=== PATIENT | female | born 1955 | race Caucasian/White ===

== ENCOUNTER 2017-01-08 17:21 | Inpatient (IN) | payer OTHER ==
[~2017-01-08] VITALS: Ht 165.1 cm; Wt 72.0 kg
[2017-01-08] MEDS ORDERED: SOD CHLORIDE 0.9% 1,000 ML IV STA (17:39)
[2017-01-08] MEDS ORDERED: ASPIRIN 325 MG TAB PO STA (17:39)
--- NOTE | 2017-01-08 17:57 | RADRPT ---
PROCEDURE: CT Head without. CLINICAL INDICATION: Code stroke. TECHNIQUE: The study was performed utilizing a multi-slice, multidetector CT scanner. Direct spira l 1 mm axial sections were obtained through the head without the use of intravenous contrast materia l. 1 or more of the following dose reduction techniques were utilized: Automated exposure control, adjustment of the mA and/or kV according to patient's size, iterative reconstruction technique. Co ashish and sagittal reformations were obtained. The images were reviewed on a PACS workstation. RADIATION DOSE: CTDIvol: 40.2 mGyDLP: 754.6 mGy-cm COMPARISON: No prior studies are available for comparison. FINDINGS: There is no intracranial hemorrhage, extra-axial fluid collection, mass lesion, midline shift or hyd rocephalus. The ventricles, sulci and cisterns are within normal limits. There are mild asymmetric white matter changes in the bilateral periatrial regions of the parietal and occipital lobes, which is nonspecific. The taylor-white matter differentiation is preserved. The basal cisterns are patent . The midline structures are intact. The orbits, calvarium and extracranial soft tissues are lopez l in appearance. The visualized paranasal sinuses, mastoid air cells and middle ear cavities are nor hawk aerated. IMPRESSION: 1. No acute intracranial abnormality. No intracranial hemorrhage, extra-axial fluid collection, ma ss lesion or hydrocephalous. 2. Asymmetric prominence of the white matter in the bilateral posterior white matter, which is nons pecific. If clinical history of hypertension, posterior reversible encephalopathy syndrome can be c onsidered. 3. No CT evidence of infarct at this time. If clinical concern for infarct, MRI is recommended for further evaluation. The above findings were discussed with Patient's physician VERNON Urena by telephone on 2016 5:55:47 PM. RPTAT: HGAS .Jaleel Merino MD, Date Time Electronically viewed and signed by .Jaleel Merino MD, MD on 01/08/2017 17:57 .S/
[2017-01-08] MEDS ORDERED: CHOL100062 PO (18:02)
[2017-01-08] MEDS ORDERED: GLUC-105 PO (18:05)
--- NOTE | 2017-01-08 18:06 | ERA ---
ER Documentation Chief Complaint Date/Time DATE: 01/08/17 TIME: 18:03 Chief Complaint weakness, left sided upper/ lower ext weakness, facial droop since 0900 HPI This is a 61-year-old female with an onset at 9 AM this morning of sudden left facial drooping left arm weakness and left leg weakness. There is no numbness. No speech or visual change. She has no prior history of stroke. She has no headache no fever no recent trauma chest pain shortness of breath. ROS All systems reviewed and are negative except as per history of present illness. Medications Home Meds Reported Medications Glucosa Infante 2KCL/Chondroitin Infante (GLUCOSAMINE CHONDROITIN CAPLET) 1 Each Tablet, 1 EACH PO DAILY, TAB 01/08/17 Cholecalciferol* (Vitamin D3*) 1,000 Unit Tablet, 1000 UNIT PO DAILY, TAB 01/08/17 Allergies Allergies: Coded Allergies: No Known Allergy (Unverified , 01/08/17) FmHx Family History: No coronary disease Physical Exam Vitals Vital Signs Date Time Temp Pulse Resp B/P Pulse Ox O2 Delivery O2 Flow Rate FiO2 01/08/17 20:00 73 18 183/97 99 Nasal Cannula 3.0 01/08/17 18:58 Nasal Cannula 3 01/08/17 17:39 97.8 79 20 185/105 97 Physical Exam Const: Well-developed, well-nourished Head: Atraumatic, normocephalic Eyes: Normal Conjunctiva, PERRLA, EOMI, normal sclera, no nystagmus ENT: Normal External Ears, Nose and Mouth, moist mucus membranes. Neck: Full range of motion. No meningismus, no lymphadenopathy. Resp: Clear to auscultation bilaterally, no wheezing, rhonchi, rales Cardio: Regular rate and rhythm, no murmurs, S1 S2 present Abd: Soft, non tender x 4, non distended. Normal bowel sounds, no guarding or rebound, no pulsitile abdominal masses or bruits Skin: No petechiae or rashes, no ecchymosis , no maculopapular rash Back: No midline or flank tenderness Ext: No cyanosis, or edema, FROM x 4, normal inspection, neurovascularly intact x 4 Neur: Awake and alert, STR 5/5 x 2, left facial droop and weakness, positive pronator drift left arm, left upper extremity strength 3-4/5, left lower extremity strength 3-4 out of 5, sensation intact x 4, Psych: Normal Mood and Affect Result Diagram: 01/08/17 1805 01/08/17 180 Results 24 hrs Laboratory Tests Test 01/08/17 18:05 White Blood Count 7.710^3/ul Red Blood Count 4.4810^6/ul Hemoglobin 14.2g/dl Hematocrit 42.0% Mean Corpuscular Volume 93.8fl Mean Corpuscular Hemoglobin 31.7pg Mean Corpuscular Hemoglobin Concent 33.8g/dl Red Cell Distribution Width 11.9% Platelet Count 64663^3/UL Mean Platelet Volume 9.6fl Neutrophils % 67.7% Lymphocytes % 26.5% Monocytes % 3.5% Eosinophils % 1.7% Basophils % 0.5% Nucleated Red Blood Cells % 0.0/100WBC Neutrophils # 5.210^3/ul Lymphocytes # 2.010^3/ul Monocytes # 0.310^3/ul Eosinophils # 0.110^3/ul Basophils # 0.010^3/ul Nucleated Red Blood Cells # 0.010^3/ul Prothrombin Time 12.5Sec Prothrombin Time Ratio 1.0 INR International Normalized Ratio 0.93 Activated Partial Thromboplast Time 27.4Sec Sodium Level 142mmol/L Potassium Level 3.9mmol/L Chloride Level 105mmol/L Carbon Dioxide Level 24mmol/L Anion Gap 17 Blood Urea Nitrogen 12mg/dl Creatinine 0.64mg/dl Glucose Level 110mg/dl Calcium Level 10.2mg/dl Total Bilirubin 0.3mg/dl Direct Bilirubin 0.00mg/dl Indirect Bilirubin 0.3mg/dl Aspartate Amino Transf (AST/SGOT) 30IU/L Alanine Aminotransferase (ALT/SGPT) 32IU/L Alkaline Phosphatase 136IU/L Troponin I < 0.012ng/ml Total Protein 8.4g/dl Albumin 4.7g/dl Globulin 3.70g/dl Albumin/Globulin Ratio 1.27 Current Medications Medications (Trade) Dose Ordered Sig/Matt Route PRN Reason Start Time Stop Time Status Last Admin Dose Admin Sodium Chloride (NS) 1,000 ml @ 1,000 mls/hr Q1H STAT IV 01/08/17 17:39 01/08/17 18:38 DC 01/08/17 18:36 Aspirin (Aspirin) 325 mg ONCE STAT PO 01/08/17 17:39 01/08/17 17:41 DC 01/08/17 18:38 Procedures/MDM PROCEDURE: CT Head without. CLINICAL INDICATION: Code stroke. TECHNIQUE: The study was performed utilizing a multi-slice, multidetector CT scanner. Direct spiral 1 mm axial sections were obtained through the head without the use of intravenous contrast material. 1 or more of the following dose reduction techniques were utilized: Automated exposure control, adjustment of the mA and/or kV according to patient's size, iterative reconstruction technique. Coronal and sagittal reformations were obtained. The images were reviewed on a PACS workstation. RADIATION DOSE: CTDIvol: 40.2 mGy DLP: 754.6 mGy-cm COMPARISON: No prior studies are available for comparison. FINDINGS: There is no intracranial hemorrhage, extra-axial fluid collection, mass lesion, midline shift or hydrocephalus. The ventricles, sulci and cisterns are within normal limits. There are mild asymmetric white matter changes in the bilateral periatrial regions of the parietal and occipital lobes, which is nonspecific. The taylor-white matter differentiation is preserved. The basal cisterns are patent. The midline structures are intact. The orbits, calvarium and extracranial soft tissues are normal in appearance. The visualized paranasal sinuses, mastoid air cells and middle ear cavities are normally aerated. IMPRESSION: 1. No acute intracranial abnormality. No intracranial hemorrhage, extra-axial fluid collection, mass lesion or hydrocephalous. 2. Asymmetric prominence of the white matter in the bilateral posterior white matter, which is nonspecific. If clinical history of hypertension, posterior reversible encephalopathy syndrome can be considered. 3. No CT evidence of infarct at this time. If clinical concern for infarct, MRI is recommended for further evaluation. The above findings were discussed with Patient's physician VERNON Urena by telephone on 01/08/2017 5:55:47 PM. RPTAT: HGAS .Jaleel Merino MD, MD Date Time Electronically viewed and signed by .Jaleel Merino MD, on 01/08/2017 17: 57 .S/ CC: GERI JUNIOR DO ROCEDURE: XR Chest. CLINICAL INDICATION: Possible Stroke TECHNIQUE: Single frontal view of the chest was obtained. COMPARISON: None. FINDINGS: There are low lung volumes and moderate cardiomegaly with prominence of interstitial markings, likely due to a combination of congestive changes and vascular crowding. There are no focal infiltrates. Pleural plaques are noted on the right laterally. There is no significant pleural effusion or pneumothorax. IMPRESSION: Low lung volumes and moderate cardiomegaly with prominence of interstitial markings, likely due to a combination of congestive changes and vascular crowding. No focal infiltrates or effusions. 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 RPTAT: EE Gabriele Brower Physician Date Time Electronically viewed and signed by Gabriele Brower Physician on 01/08/2017 20:25 RA/ CC: GERI JUNIOR DO EKG: Rate/Rhythm: Normal sinus rhythm, left axis deviation QRS, ST, QT: NORMAL PA, QRS, QT] Impression: NORMAL EKG Patient is way outside the TPA window. She is not a candidate. Spoke with Dr. Palmer. The patient admitted to telemetry for stroke workup. Departure Diagnosis: Primary Impression: CVA (cerebral vascular accident) Qualified Code: I63.9 - Cerebrovascular accident (CVA), unspecified mechanism Condition: Stable GERI JUNIOR DO Jan 08, 2017 18:06
[2017-01-08 18:22] LABS: ADD SCAN DIFF NO
[2017-01-08 18:27] LABS: BASOPHILS % 0.5 % (0.0-2.0); EOSINOPHILS # 0.1 10^3/ul (0.0-0.5); EOSINOPHILS % 1.7 % (0.0-7.0); HEMOGLOBIN 14.2 g/dl (12.0-16.0); LYMPHOCYTES % 26.5 % (15.0-51.0); MEAN CORPUSCULAR HEMOGLOBIN 31.7 pg (29.0-33.0); MEAN CORPUSCULAR HGB CONC 33.8 g/dl (32.0-37.0); MEAN CORPUSCULAR VOLUME 93.8 fl (82.0-101.0); MEAN PLATELET VOLUME 9.6 fl (7.4-10.4); MONOCYTE # 0.3 10^3/ul (0.3-0.9); MONOCYTES % 3.5 % (0.0-11.0); NEUTROPHIL # 5.2 10^3/ul (1.6-7.5); NEUTROPHILS % 67.7 % (39.0-77.0); PLATELET COUNT 328 10^3/UL (140-415); RED BLOOD COUNT 4.48 10^6/ul (4.20-5.40); RED CELL DISTRIBUTION WIDTH 11.9 % (11.5-14.5); WHITE BLOOD COUNT 7.7 10^3/ul (4.8-10.8)
[2017-01-08 18:37] LABS: INR 0.93; PROTIME 12.5 Sec (12.2-14.2)
[2017-01-08 18:38] LABS: PARTIAL THROMBOPLASTIN TIME 27.4 Sec (25.0-35.0)
[2017-01-08 18:41] LABS: ALBUMIN 4.7 g/dl (3.3-4.9); CHLORIDE 105 mmol/L (97-110)
[2017-01-08 18:42] LABS: POTASSIUM 3.9 mmol/L (3.5-5.1); SODIUM 142 mmol/L (135-144)
[2017-01-08 18:44] LABS: ALBUMIN/GLOBULIN RATIO 1.27; ALKALINE PHOSPHATASE 136 IU/L (42-121); ANION GAP 17 (8-16); ASPARTATE AMINO TRANSFERASE 30 IU/L (15-46); BILIRUBIN,INDIRECT 0.3 mg/dl (0-1.1); BILIRUBIN,TOTAL 0.3 mg/dl (0.2-1.3); CARBON DIOXIDE 24 mmol/L (21-31); CREATININE 0.64 mg/dl (0.44-1.00); TOTAL PROTEIN 8.4 g/dl (6.1-8.1)
[2017-01-08 18:45] LABS: ALANINE AMINOTRANSFERASE 32 IU/L (13-69); BLOOD UREA NITROGEN 12 mg/dl (7-20); CALCIUM 10.2 mg/dl (8.4-10.2); GLUCOSE 110 mg/dl (70-220)
[2017-01-08 18:59] LABS: TROPONIN-I < 0.012 ng/ml (0.00-0.12)
--- NOTE | 2017-01-08 20:25 | RADRPT ---
PROCEDURE: XR Chest. CLINICAL INDICATION: Possible Stroke TECHNIQUE: Single frontal view of the chest was obtained. COMPARISON: None. FINDINGS: There are low lung volumes and moderate cardiomegaly with prominence of interstitial markings, likel y due to a combination of congestive changes and vascular crowding. There are no focal infiltrates. Pleural plaques are noted on the right laterally. There is no significant pleural effusion or pneumothorax. IMPRESSION: Low lung volumes and moderate cardiomegaly with prominence of interstitial markings, likely due to a combination of congestive changes and vascular crowding. No focal infiltrates or effusions. 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 RPTAT: EE Physician Rafael Date Time Electronically viewed and signed by Gabriele Brower Physician on 01/08/2017 20:25 /
[2017-01-08] MEDS ORDERED: SOD CHLORIDE 0.9% 1,000 ML IV SCH (22:20)
[2017-01-08] MEDS ORDERED: HYDROCODONE/APAP (5/325) TAB PO PRN (22:30)
[2017-01-08] MEDS ORDERED: ACETAMINOPHEN 325 MG TAB PO PRN ×2 (22:30)
[2017-01-08] MEDS: FAMOTIDINE 20 MG TAB PO SCH (22:30)
[2017-01-08] MEDS ORDERED: NACL 0.9% 3 ML SYG IV SCH (22:30)
[2017-01-08] MEDS ORDERED: LABETALOL 100 MG TAB PO SCH (22:30)
[2017-01-08] MEDS ORDERED: ONDANSETRON 4 MG TAB PO PRN (22:30)
[2017-01-08] MEDS ORDERED: ONDANSETRON 4 MG INJ IV PRN (22:30)
[2017-01-08] MEDS ORDERED: DOCUSATE SODIUM 100 MG CAP PO PRN (22:30)
[2017-01-09 05:46] LABS: ADD SCAN DIFF NO
[2017-01-09 05:51] LABS: BASOPHIL # 0.1 10^3/ul (0.0-0.1); BASOPHILS % 0.7 % (0.0-2.0); EOSINOPHILS # 0.1 10^3/ul (0.0-0.5); HEMOGLOBIN 13.9 g/dl (12.0-16.0); LYMPHOCYTES # 2.6 10^3/ul (0.8-2.9); LYMPHOCYTES % 36.5 % (15.0-51.0); MEAN CORPUSCULAR HEMOGLOBIN 31.7 pg (29.0-33.0); MEAN CORPUSCULAR HGB CONC 33.9 g/dl (32.0-37.0); MEAN CORPUSCULAR VOLUME 93.6 fl (82.0-101.0); MEAN PLATELET VOLUME 9.3 fl (7.4-10.4); MONOCYTE # 0.3 10^3/ul (0.3-0.9); MONOCYTES % 4.6 % (0.0-11.0); NEUTROPHIL # 3.9 10^3/ul (1.6-7.5); NEUTROPHILS % 55.9 % (39.0-77.0); PLATELET COUNT 312 10^3/UL (140-415); RED BLOOD COUNT 4.38 10^6/ul (4.20-5.40); RED CELL DISTRIBUTION WIDTH 12.2 % (11.5-14.5)
[2017-01-09 06:10] LABS: CHOL/HDL RATIO 3.5 RATIO; POTASSIUM 3.4 mmol/L (3.5-5.1)
[2017-01-09 06:13] LABS: CREATININE 0.65 mg/dl (0.44-1.00)
[2017-01-09 06:14] LABS: CALCIUM 9.7 mg/dl (8.4-10.2)
--- NOTE | 2017-01-09 08:13 | RADRPT ---
PROCEDURE: US Carotids. CLINICAL INDICATION: CVA TECHNIQUE: Multiple sonographic of the carotid arteries were obtained utilizing taylor scale imaging . Color and Doppler imaging was performed. The images were reviewed on a PACS workstation. COMPARISON: No prior studies are available for comparison. FINDINGS: Location Right Left CCA 70 cm/sec 76 cm/sec Prox ICA 32 cm/sec 77 cm/sec Mid ICA 45 cm/sec 51 cm/sec Dist ICA 59 cm/sec not seen ECA 53 cm/sec 43 cm/sec ICA/CCA 0.7 1.3 Antegrade flow is seen within the vertebral arteries bilaterally. No significant plaque is seen with in the carotid system bilaterally. No hemodynamically significant stenosis or occlusion is identifi ed. IMPRESSION: 1. No evidence for hemodynamically significant stenosis - validated velocity measurements with angio graphic measurements, velocity criteria are extrapolated from diameter data as defined by the Societ y of Radiologists in Ultrasound Consensus Conference Radiology 2003; 229;340-346. This study does i ndirectly reference the measurement of the distal ICA diameter as the denominator for stenosis measu rement. 2. Antegrade flow seen within the vertebral arteries bilaterally. SRU Consensus Conference Criteria for the Diagnosis of Carotid Artery Stenosis Degree of Stenosis, % ICA PSV, cm/sec Plaque Estimate, % ICA/CCA PSV Ratio Normal <125 None <2.0 <50 <125 <50 <2.0 50 69 125-230 >50 2.0-4.0 >70 but less than near occlusion >230 >50 <4.0 Near occlusion High, low, or undetectable Visible Variable Total occlusion Undetectable Visible, no detectable lumen Not applicable *Cartoid artery stenosis: taylor-scale and Doppler US diagnosis. Society of Radiologists in Ultrasound Consensus Conference. Radiology 2003; 229: 340-346 RPTAT: JJ .Karl Avila MD, Date Time Electronically viewed and signed by .Karl Avila MD, on 01/09/2017 08:13 .A/
[2017-01-09] MEDS: FAMOTIDINE 20 MG TAB PO SCH ×2 (09:00→21:28)
[2017-01-09] MEDS ORDERED: ASPIRIN (EC) 325 MG TAB PO SCH (09:00)
--- NOTE | 2017-01-09 11:52 | RADRPT ---
PROCEDURE: MRA Brain. CLINICAL INDICATION: Stroke. TECHNIQUE: An MRA of the brain was performed without intravenous contrast utilizing the following sequences: 3-D [id number] images through the intracranial vasculature with post processed carmen l intensity projections in multiple planes. COMPARISON: Concurrent MRI of the brain. FINDINGS: The petrous, cavernous, and supraclinoid internal carotid artery segments are patent without evidenc e of significant stenosis. Mild to moderate narrowing of the M1 segment of the right MCA is noted. T he proximal anterior cerebral and middle cerebral arteries are patent without significant stenosis. The intradural vertebral arteries, basilar artery and posterior cerebral arteries are patent withou t evidence of significant focal stenosis. No aneurysms are identified. IMPRESSION: 1. Mild to moderate narrowing of the M1 segment of the right MCA. 2. Otherwise no significant stenosis of the remainder of major intracranial arteries. RPTAT: HH .Reyna Shelby MD, Date Time Electronically viewed and signed by .Reyna Shelby MD, on 01/09/2017 11:52 .N/
--- NOTE | 2017-01-09 12:03 | RADRPT ---
PROCEDURE: MR Brain without contrast. CLINICAL INDICATION: Right motor strip infarct TECHNIQUE: An MRI of the brain was performed on a 1.5 gabrielle scanner utilizing the following sequen mikael: Sagittal T1 weighted, axial T2 weighted, axial FLAIR, coronal GRE, and axial diffusion weighted with ADC mapping. COMPARISON: CT brain 01/08/2017 FINDINGS: Large area of restricted diffusion emanating from the right basal ganglia and posterior limb of the internal capsule extending superiorly along the rocha radiata measuring 2.6 cm in greatest transaxi al dimension compatible with acute / early subacute ischemic infarct. No significant mass effect or vasogenic edema. No associated signal loss on gradient echo sequences to suggest hemorrhagic trans formation. Patchy T2 signal hyperintensity and mild encephalomalacia in the left parietal lobe most compatible with remote ischemic injury. The subtle cortical delay in based/leptomeningeal due to signal hyperin tensity in the right posterior temporal region. This of uncertain etiology without associated restr icted diffusion and may represent sequelae of chronic ischemic injury. Postcontrast imaging is justin mmended for further evaluation. Patchy scattered T2 signal hyperintensity foci throughout the deep w saul matter bilaterally compatible with sequelae of chronic microvascular ischemic injury. There is no evidence of intracranial hemorrhage, mass effect, or midline shift. No extra-axial flui d collections are seen. No hypointense signal abnormalities are seen on the GRE images to suggest the presence of blood degr adation products. The remaining brain parenchyma is normal in morphology with preservation of taylor white differentiati on. Age appropriate size of the ventricles and subarachnoid spaces Age appropriate size of the berenice tricles and subarachnoid spaces. The posterior fossa contents, brainstem, seventh - eighth cranial nerve complexes, pituitary axis, o rbits, paranasal sinuses, and mastoid air cells are unremarkable. Normal flow voids are visible in the proximal intracranial arteries and dural sinuses, indicating pa tency. IMPRESSION: 1. Acute / early subacute ischemic infarct involving the right lenticular nucleus, posterior limb of the internal capsule, and rocha radiata. No evidence of hemorrhagic transformation, edema, mass e ffect, or shift. 2. Patchy left parietal due to signal hyperintensity compatible with sequelae of remote ischemic in jury. Subtle right posterior temporal T2 signal hyperintensity involving the gyri suggestive of chr onic ischemic injury. No associated restricted diffusion to suggest acute or early subacute ischemi c infarction. Postcontrast imaging is recommended for evaluation of the right temporal lobe process . 3. Moderate chronic microvascular ischemic changes in the deep white matter. Age appropriate size of the ventricles and subarachnoid spaces. RPTAT:AAJJ Margo Cruz Physician Date Time Electronically viewed and signed by Margo Cruz Physician on 01/09/2017 12:03 RAGHAV/
[2017-01-09 12:33] VITALS: TEMP 98.3
[2017-01-09 13:30] VITALS: Ht 165.1 cm; Wt 72.0 kg
[2017-01-09] MEDS ORDERED: POTASSIUM CHLORIDE (SR) 20 MEQ TAB PO STA (13:30)
[2017-01-09] MEDS ORDERED: hydrALAzine 20 MG INJ IV PRN (14:00)
[2017-01-09 14:17] VITALS: PULSE 76
[2017-01-09] MEDS ORDERED: GLUCOSE GEL 15 GRAM TUBE BUCCAL PRN (14:30)
[2017-01-09] MEDS ORDERED: DEXTROSE 50% 50 ML SYRINGE IV PRN ×2 (14:30)
[2017-01-09] MEDS ORDERED: GLUCAGON 1 MG INJ IM PRN (14:30)
[2017-01-09] MEDS ORDERED: Discontinue Glyburide, Glipizide, and/or Glimepiride prior to starting Insulin XX ONE (14:30)
[2017-01-09] MEDS ORDERED: HYPOGLYCEMIA PROTOCOL when Glucose is <70 mg/dL or symptomatic <90 mg/dL. XX ONE (14:30)
[2017-01-09] MEDS ORDERED: GLUCOSE GEL 15 GRAM TUBE PO PRN ×2 (14:30)
--- NOTE | 2017-01-09 14:53 | HP ---
DATE OF ADMISSION: 01/08/2017 PRIMARY CARE PHYSICIAN: Unknown. CHIEF COMPLAINT ON ADMISSION: Left-sided weakness. HISTORY OF PRESENT ILLNESS: This is a 61-year-old female with reported prediabetes mellitus, hyperl ipidemia, hypertension, she ran out of medications 4 months ago, has not taken anything lately, who presented to the emergency department with acute onset of left facial droop, left facial numbness, l eft upper extremity weakness and also left lower extremity weakness, but her left upper extremity an d hemiparesis is worse than the left lower extremity. The onset of these symptoms are around 5:00 p .m. yesterday. Upon presentation to the ER, she was out of TPA window. She had a CAT scan of the h ead which was not showing any acute findings at that point. Therefore, MRI, MRA, carotid ultrasound , and 2-D echocardiogram have been ordered. The patient symptomatically did have CVA already. MRI done today is showing acute to early subacute ischemic infarct involving the right lenticular nucleu s posterior limb of internal capsular and rocha radiata. The patient is already on aspirin. Her b lood pressure is being controlled with permissive hypertension being allowed. She was started on st atin therapy based on her fasting lipid panel. Hemoglobin A1c is pending. Physical therapy evaluat ion is also pending. She is admitted to telemetry for monitoring. As of now, 01/09/2017 at 2:00 p. m., she reports that her left facial droop seems to be improved; however, her left upper extremity p aresis is still severe, she has left hemiparesis and the left lower extremity seems to be more funct ional than the left upper extremity. She denies any fevers, chills, nausea or vomiting recently. S he denies any chest pain, chest palpitations, dizziness or visual changes. She does report right la teral and posterior headache over the past 3 days on and off, which is now resolved. She denies any previous history of CVA. ALLERGIES: NO KNOWN ALLERGIES. PAST MEDICAL HISTORY: 1. Prediabetes mellitus. She has been diet controlled according to the patient. 2. Hyperlipidemia. 3. Hypertension. OUTPATIENT MEDICATIONS: None. The patient ran out of medication a month ago, has not taken anythin g and does not remember which medications she was on. PAST SURGICAL HISTORY: Status post hysterectomy 2 years ago. SOCIAL HISTORY: The patient denies any smoking or alcohol use. She lives with family. She is full y independent with all ADLs and very active. PHYSICAL EXAMINATION: VITAL SIGNS: Temperature is 98.3, heart rate of 76, respiratory rate of 18, blood pressure 166/91. The patient is saturating 98% on 3 liters nasal cannula, but she is also 100% on room air. GENERAL: She is alert and oriented x4. She does have a left facial droop noted, mild to moderate HEENT: Pupils are equally round and reactive to light. Extraocular muscles are intact. Anicteric sclerae. NECK: No JVD, no thyromegaly noted. HEART: Regular rate and rhythm. No murmur, rubs, or gallops. LUNGS: Clear to auscultation bilaterally. ABDOMEN: Soft, nontender, nondistended. Bowel sounds are present. EXTREMITIES: No edema, clubbing or cyanosis. NEUROLOGIC: She does have a left facial droop. Cranial nerves II through XII are actually fairly i ntact. Motor strength at most 2+/5 left upper extremity, 3+/5 left lower extremity. Sensation is i ntact. Gait is not tested. Physical therapy is pending. LABORATORY DATA: White blood cell count 7.0, hemoglobin 13.9, hematocrit 41.0, platelet count of 31 2. Chemistry with a sodium of 141, potassium 3.1, chloride 106, bicarbonate 23, BUN 13, creatinine 0.65, glucose of 107, calcium of 9.7. Troponins are negative x2. Triglycerides 226, cholesterol 21 4, LDL of 109 with HDL of 60. TSH is 6.190. INR is 0.93, PT 12.5, PTT 27.4. Free T4 is pending. Hemoglobin A1c is pending. RADIOLOGICAL DATA: 1. Chest x-ray shows low lung volumes, moderate cardiomegaly with prominence of interstitial markin gs, no focal infiltrate. 2. CAT scan of the brain, noncontrast, did not show most of acute findings; however, MRI of the bra in is showing acute early subacute ischemic infarct involving the right lenticular nucleus posterior limb of the internal capsule and rocha radiata. No evidence of hemorrhagic transformation, edema and mass effect or shift. Patchy left parietal due to signal hyperintensity compatible with sequela e of remote ischemic injury, moderate chronic microvascular ischemic changes. 3. MRA of the brain shows mild to moderate narrowing of M1 segment of the right MCA. 4. Carotid Doppler shows no evidence of hemodynamically significant stenosis. 5. A 2D echocardiogram is pending. ASSESSMENT AND PLAN: This is a 61-year-old female with: 1. Acute cerebrovascular accident with left hemiparesis and left facial droop at this point. We wi ll continue aspirin 81 mg p.o. daily. Lipitor has been started at 40 mg p.o. at bedtime. A 2D echo cardiogram is pending. We will monitor the patient on telemetry. Neurology consult will be ordered . PT is ordered. We will add occupational therapy. Speech therapy is also ordered. The patient i s kept on observation for now. Depending on her progression, we may convert to inpatient. 2. Prediabetes. Her blood sugars are stable currently. We will just check a hemoglobin A1c, put h er on sliding scale insulin as needed for now and she is on a diabetic diet. 3. Hyperlipidemia. Continue statin therapy at this point. 4. Hypertension. I will start her on JORDEN inhibitors given her known history of prediabetes mellitu s for blood pressure control to start with. Additional agents will be added as needed. For now per missive hypertension; therefore, systolic blood pressure above 180 will be treated. 5. Prophylaxis: Sequential compression devices to lower extremities for deep venous thrombosis pro phylaxis and Pepcid for gastrointestinal prophylaxis. DISPOSITION: Neurology consult. PT, OT and speech therapy pending. We will monitor on telemetry. Dictated By: LACIE MINAYA/SANDRA Conf#: [id number] DID#: [id number]
[2017-01-09 16:36] VITALS: PULSE 85
[2017-01-09] MEDS: INSULIN ASPART [NOVOLOG] 3 ML PEN SC SCH ×2 (18:39→21:00)
[2017-01-09 20:00] VITALS: BP 176/91; RESP 18
[2017-01-09 20:55] VITALS: PULSE 84
[2017-01-09] MEDS: ATORVASTATIN 40 MG TAB PO SCH (21:27)
[2017-01-09] MEDS: LISINOPRIL 10 MG TAB PO SCH (21:28)
[2017-01-09 23:59] VITALS: BP 139/71; RESP 18
[2017-01-10] VITALS (11 sets, daily range): BP systolic 114–169; BP diastolic 78–97; PULSE 66–95; RESP 18–20
[2017-01-10] MEDS ORDERED: ACCU-CHEK XX SCH (02:00)
--- NOTE | 2017-01-10 02:17 | CONS ---
DATE OF ADMISSION: 01/08/2017 DATE OF CONSULTATION: 01/09/2017 TYPE OF CONSULTATION: Neurological. Thank you, Dr. Gilmore, for your kind referral for evaluation of acute stroke. HISTORY OF PRESENT ILLNESS: The patient is a 61-year-old lady with history of prediabetes, diet con trolled; dyslipidemia and hypertension, off medications for 4 months, presented with left-sided weak ness which started at approximately 5:00 p.m. on 01/07. She was out of the tPA window when she pres ented. MRI of the brain was obtained already showing left internal capsule and basal ganglia acute infarct as well as some chronic ischemic changes in the brain. Her labs show normal CBC and basic m etabolic panel. TSH 6.19, which is high, but free T4 is normal. Cholesterol 214, LDL 109. Hemoglo bin A1c is pending. Normal PT and PTT. Carotid ultrasound within normal limits, and MRA of the brain shows mild to moderate narrowing of th e M1 segment of the right MCA artery. Chest x-ray: Cardiomegaly, interstitial markings as well as right-sided pleural plaque, likely from asbestosis exposure. MEDICATIONS PRIOR TO ADMISSION: None. Currently she is on: 1. Aspirin. 2. Atorvastatin 40. 3. Zestril. 4. Insulin sliding scale. SOCIAL HISTORY: No alcohol, tobacco, drug use. FAMILY HISTORY: Not contributory. REVIEW OF SYSTEMS: All pertinent positives included in the above history of present illness. PHYSICAL EXAMINATION: VITAL SIGNS: Temperature 98.3, pulse 85, respirations 18, blood pressure 166/91. GENERAL: Not in acute distress, lying in bed. HEENT: Normocephalic, atraumatic head. NECK: No carotid bruits. No thyromegaly. LUNGS: Clear to auscultation bilaterally. CARDIAC: Normal cardiac rhythm and sounds. ABDOMEN: Soft, nontender. EXTREMITIES: No cyanosis, clubbing or edema. NEUROLOGIC: She is awake, alert and oriented x3 with fluent speech. Cranial nerve examination show s intact visual villa bilaterally. Pupils reactive to light from 3 to 2 mm bilaterally. Extraocul ar movements intact without nystagmus. Asymmetrical face secondary to left-sided facial weakness pr edominantly involving the lower part of the face but to milder extent even the forehead and palpebra l fissure on the left. Preserved facial sensation. Tongue is in midline. Palate elevates symmetri kevyn. Motor strength examination shows severe weakness at 1/5 to 2/5 in the left upper extremity, flaccid tone. Strength is better in the left lower extremity, about 3/5. Normal muscle bulk. Deep tendon reflexes 2+ throughout. Downgoing toes bilaterally. Coordination preserved on the right fi [id number] testing. No dysmetria or tremor. Sensory examination shows normal perception of pin prick and touch bilaterally. IMPRESSION: 1. Acute ischemic stroke. 2. History of hypertension, dyslipidemia and prediabetes. The patient ran out of medications sever al months ago. She was put on aspirin. Please also continue current dose of Lipitor. Keep patient euglycemic. To day is third day after onset of the problem, so it is okay to gradually bring blood pressure to norm al numbers. Continue therapy. Consider rehab. Thank you very much for this interesting consultation. Dictated By: COLE HALLMAN/SANDRA Conf#: [id number] DID#: [id number]
[2017-01-10 07:42] LABS: MAGNESIUM 2.3 mg/dl (1.7-2.5); PHOSPHORUS 5.2 mg/dl (2.5-4.9)
[2017-01-10 07:50] LABS: ALBUMIN 4.2 g/dl (3.3-4.9); ALBUMIN/GLOBULIN RATIO 1.2; BILIRUBIN,INDIRECT 0.5 mg/dl (0-1.1); BILIRUBIN,TOTAL 0.5 mg/dl (0.2-1.3); CALCIUM 9.8 mg/dl (8.4-10.2); CREATININE 0.8 mg/dl (0.44-1.00); POTASSIUM 4.3 mmol/L (3.5-5.1); TOTAL PROTEIN 7.7 g/dl (6.1-8.1)
[2017-01-10] MEDS: INSULIN ASPART [NOVOLOG] 3 ML PEN SC SCH ×2 (07:55→11:50)
[2017-01-10] MEDS: LISINOPRIL 10 MG TAB PO SCH ×2 (08:55→20:34)
[2017-01-10] MEDS: FAMOTIDINE 20 MG TAB PO SCH ×2 (08:55→20:34)
[2017-01-10] MEDS: ASPIRIN (EC) 81 MG TAB PO SCH (08:55)
--- NOTE | 2017-01-10 12:33 | PN ---
Date/Time of Note Date/Time of Note DATE: 01/10/17 TIME: 12:25 Assessment/Plan VTE Prophylaxis VTE Prophylaxis Intervention: SCD's Lines/Catheters IV Catheter Type (from Nrs): Saline Lock Urinary Cath still in place: No Assessment/Plan Assessment/Plan 61-year-old female with: 1. Acute cerebrovascular accident with left hemiparesis and left facial droop and mild dysarthria Appreciate recs forn Neurology Dr Dunbar Per Neurology and PT needs ARU and no need for OT eval, covered with PT Appreciate ST eval and recs Continue current meds ARU when bed available. 2. Pre-diabetes mellitus. A1c 5.8 and BG wnl with ADA diet. D/c SSI and Accuchecks 3. Hyperlipidemia. Continue Lipitor. 4. Hypertension. Continue Lisinopril as tolerated. Prophylaxis: Sequential compression devices to lower extremities for deep venous thrombosis prophylaxis and Pepcid for gastrointestinal prophylaxis. DISPOSITION: ARU when bed available. Subjective 24 Hr Interval Summary Free Text/Dictation Patient remains stable but had an episode of fall today this AM as she tried to ambulate with ongoing left Hemiparesis No injury Appreciate PT eval and patient good candidate for ARU [facility] aware Exam/Review of Systems Vital Signs Vitals Vital Signs Date Time Temp Pulse Resp B/P Pulse Ox O2 Delivery O2 Flow Rate FiO2 01/10/17 12:12 78 01/10/17 08:26 98.5 20 114/78 96 01/09/17 12:33 Nasal Cannula 3.0 Intake and Output 01/09/17 01/09/17 01/10/17 15:00 23:00 07:00 Intake Total 350 ml Balance 350 ml Exam Constitutional: alert, oriented, other (left hemiparesis ), well developed Respiratory: clear to auscultation, normal air movement Cardiovascular: nl pulses, regular rate and rhythm Gastrointestinal: non-tender, soft Musculoskeletal: other (left hemiparesis) Extremities: normal pulses, other (no edema, clubbing or cyanosis but left hemiparesis persistent ) Neurological: focal weakness (left hemiparesis ), nl mental status, other ( mild dysarthria and left lower facial droop ) Results Result Diagram: 01/09/17 0536 01/10/17 0620 Results 24 hrs Laboratory Tests Test 01/09/17 17:43 01/09/17 21:33 01/10/17 06:20 01/10/17 07:59 Bedside Glucose 141 102 109 Sodium Level 140 Potassium Level 4.3 Chloride Level 107 Carbon Dioxide Level 24 Anion Gap 13 Blood Urea Nitrogen 17 Creatinine 0.80 Glucose Level 107 Hemoglobin A1c 5.8 Calcium Level 9.8 Phosphorus Level 5.2 H Magnesium Level 2.3 Total Bilirubin 0.5 Direct Bilirubin 0.00 Indirect Bilirubin 0.5 Aspartate Amino Transf (AST/SGOT) 40 Alanine Aminotransferase (ALT/SGPT) 36 Alkaline Phosphatase 108 Total Protein 7.7 Albumin 4.2 Globulin 3.50 H Albumin/Globulin Ratio 1.20 Test 01/10/17 11:51 Bedside Glucose 101 Medications Medications Current Medications Ondansetron HCl (Zofran Tab) 4 mg Q6H PRN PO NAUSEA AND/OR VOMITING; Start at 22:30 Acetaminophen (Tylenol Tab) 650 mg Q6H PRN PO PAIN LEVEL 1-3 OR FEVER; Start at 22:30 Acetaminophen/ Hydrocodone Bitart ([place] (5/325)) 1 tab Q6H PRN PO PAIN LEVEL 4 -6; Start 01/08/17 at 22:30 Acetaminophen/ Hydrocodone Bitart ([place] (5/325)) 2 tab Q6H PRN PO PAIN LEVEL 7 -10; Start 01/08/17 at 22:30 Docusate Sodium (Colace) 100 mg Q12H PRN PO CONSTIPATION; Start 01/08/17 at 22: 30 Famotidine (Pepcid) 20 mg Q12 PO Last administered on 01/10/17 08:55; Admin Dose 20 MG; Start 01/08/17 at 22:30 Aspirin (Halfprin) 81 mg DAILY PO Last administered on 01/10/17 08:55; Admin Dose 81 MG; Start 01/10/17 at 09:00 Hydralazine HCl (Apresoline) 10 mg Q8H PRN IV ELEVATED SYSTOLIC BP; Start 01/09 at 14:00 Atorvastatin Calcium (Lipitor) 40 mg HS PO Last administered on 01/09/17 21:27 ; Admin Dose 40 MG; Start 01/09/17 at 21:00 Lisinopril (Zestril) 10 mg BID PO Last administered on 01/10/17 08:55; Admin Dose 10 MG; Start 01/09/17 at 21:00 Diagnostic Test (Pha) (Accu-Chek) 1 ea 02 XX ; Start 01/10/17 at 02:00 Miscellaneous Information 1 ea NOTE XX ; Start 01/09/17 at 14:30 Glucose (Glutose) 15 gm Q15M PRN PO DECREASED GLUCOSE; Start 01/09/17 at 14:30 Glucose (Glutose) 22.5 gm Q15M PRN PO DECREASED GLUCOSE; Start 01/09/17 at 14: 30 Dextrose (D50w Syringe) 25 ml Q15M PRN IV DECREASED GLUCOSE; Start 01/09/17 at 14:30 Dextrose (D50w Syringe) 50 ml Q15M PRN IV DECREASED GLUCOSE; Start 01/09/17 at 14:30 Glucagon (Glucagen) 1 mg Q15M PRN IM DECREASED GLUCOSE; Start 01/09/17 at 14:30 Glucose (Glutose) 15 gm Q15M PRN BUCCAL DECREASED GLUCOSE; Start 01/09/17 at 14 :30 LACIE PALMER Jan 10, 2017 12:33
--- NOTE | 2017-01-10 13:27 | PDOCDIS ---
Discharge Instructions CONDITION Patient Condition: Stable HOME CARE INSTRUCTIONS: Special Diet: ADA diet ACTIVITY: Activity Restrictions: Slowly Increase Activity FOLLOW UP/APPOINTMENTS Appointments Follow up with PCP within 2 weeks Follow up with Neurology as needed LACIE PALMER Jan 10, 2017 13:27
--- NOTE | 2017-01-10 13:31 | RADRPT ---
Echocardiogram Report Patient Name: SRI MCNAMARA Gender: Female Date: 1955 Study Date: 10-Jan-2017 Pad Extractor Tender: Leonardo Gracia [facility] Location: [id number] Ref. Physician: RONDA PALMER Quality: Good Procedures: Transthoracic echocardiogram with complete 2D, M-Mode, and doppler examination. Indications: Cerebrovascular Accident. 2D/M Mode Doppler Measurement Value Normal Ranges Measurement Value Normal Ranges LVIDd 2D 3.7 3.5 - 5.6 cm AV Peak Yung 1.1 m/sec LVIDs 2D 2.5 2.1 - 4.1 cm AV Peak PG 4.7 mmHg LVPWd 2D 0.9 0.6 - 1.1 cm LVOT Peak Yung 0.9 m/sec IVSd 2D 0.9 0.6 - 1.1 cm LVOT Peak PG 2.9 mmHg AoR Diam 2D 3.0 2.0 - 3.7 cm MV E Peak Yung 0.6 m/sec EDV 2D 56.8 cm3 MV A Peak Yung 0.7 m/sec ESV 2D 15.1 cm3 MV E/A 0.8 LA Dimen 2D 2.5 2.3 - 4.0 cm MV Decel Time 207 msec MV Decel Lucas 3 MV E/A 0.8 Findings Left Ventricle: Normal left ventricular systolic function. Normal left ventricular cavity size. Normal left ventricular wall thickness. Ejection fraction is visually estimated at 65 %. Tissue Doppler/Mitral Doppler indices are consistent with impaired relaxation (Stage I diastolic dysfunction). Right Ventricle: Normal right ventricular size. Normal right ventricular systolic function. Left Atrium: The left atrium is normal in size. Right Atrium: The right atrium is normal in size. Mitral Valve: Normal appearance and function of the mitral valve with trace physiologic regurgitation. Aortic Valve: Normal appearance of the aortic valve. No significant aortic stenosis or insufficiency. Tricuspid Valve: Normal appearance and function of the tricuspid valve with trace physiologic regurgitation. Pulmonic Valve: Normal pulmonic valve appearance. Pericardium: Normal pericardium with no significant pericardial effusion. Aorta: Normal aortic root. IVC: Normal size and normal respiratory collapse consistent with normal right atrial pressure. Conclusions 1.Normal left ventricular systolic function. Normal left ventricular cavity size. Normal left ventricular wall thickness. Ejection fraction is visually estimated at 65 %. Tissue Doppler/Mitral Doppler indices are consistent with impaired relaxation (Stage I diastolic dysfunction). 2.Normal right ventricular size. Normal right ventricular systolic function. 3.The left atrium is normal in size. 4.The right atrium is normal in size. 5.No significant valvular stenosis or regurgitation seen. 6.Normal pericardium with no significant pericardial effusion. Electronically Signed By: Sandro Lacey 10-Jan-2017 13:30:57 -0700 Patient Name: SRI MCNAMARA Study Date: 10-Jan-2017 [id number]
[2017-01-10] MEDS: HYDROCODONE/APAP (5/325) TAB PO PRN (15:57)
[2017-01-10] MEDS: ATORVASTATIN 40 MG TAB PO SCH (20:33)
[2017-01-11] VITALS (10 sets, daily range): BP systolic 139–164; BP diastolic 85–99; PULSE 80–91; RESP 19–20
[2017-01-11] MEDS: HYDROCODONE/APAP (5/325) TAB PO PRN (07:50)
[2017-01-11] MEDS: FAMOTIDINE 20 MG TAB PO SCH (10:23)
[2017-01-11] MEDS: LISINOPRIL 10 MG TAB PO SCH (10:23)
[2017-01-11] MEDS: ASPIRIN (EC) 81 MG TAB PO SCH (10:23)
--- NOTE | 2017-01-11 13:38 | PN ---
Date/Time of Note Date/Time of Note DATE: 01/11/17 TIME: 13:27 Assessment/Plan VTE Prophylaxis VTE Prophylaxis Intervention: SCD's Lines/Catheters IV Catheter Type (from Nrs): Saline Lock Urinary Cath still in place: No Assessment/Plan Assessment/Plan 61-year-old female with: 1. Acute cerebrovascular accident with left hemiparesis and left facial droop and mild dysarthria Appreciate recs forn Neurology Dr Dunbar Per Neurology and PT good candidate for ARU and now bed available at [facility] Continue current meds. 2. Pre-diabetes mellitus. A1c 5.8 and BG wnl with ADA diet. 3. Hyperlipidemia. Continue Lipitor. 4. Hypertension. Continue Lisinopril and titrate up as tolerated. Prophylaxis: Sequential compression devices to lower extremities for deep venous thrombosis prophylaxis and Pepcid for gastrointestinal prophylaxis. [facility] . Subjective 24 Hr Interval Summary Free Text/Dictation Patient remains stable with unchanged left hemiparesis and mild left facial droop Has a bed for ARU today, transfer pending Exam/Review of Systems Vital Signs Vitals Vital Signs Date Time Temp Pulse Resp B/P Pulse Ox O2 Delivery O2 Flow Rate FiO2 01/11/17 12:11 85 01/11/17 11:43 98.6 19 160/99 95 01/09/17 12:33 Nasal Cannula 3.0 Intake and Output 01/10/17 01/10/17 01/11/17 15:00 23:00 07:00 Intake Total 720 ml Balance 720 ml Exam Constitutional: alert, oriented, other (left hemiparesis ), well developed Respiratory: clear to auscultation, normal air movement Cardiovascular: nl pulses, regular rate and rhythm Gastrointestinal: non-tender, soft Musculoskeletal: other (no edema, clubbing or cyanosis ) Extremities: normal pulses Neurological: RN CARDIAC II-XII intact (but mild left facial droop ), focal weakness ( left hemiparesis ), nl mental status Results Result Diagram: 01/09/17 0536 01/10/17 0620 Results 24 hrs Laboratory Tests Test 01/10/17 17:42 Bedside Glucose 110 Medications Medications Current Medications Ondansetron HCl (Zofran Tab) 4 mg Q6H PRN PO NAUSEA AND/OR VOMITING; Start at 22:30 Acetaminophen (Tylenol Tab) 650 mg Q6H PRN PO PAIN LEVEL 1-3 OR FEVER; Start at 22:30 Acetaminophen/ Hydrocodone Bitart ([place] (5/325)) 1 tab Q6H PRN PO PAIN LEVEL 4 -6 Last administered on 01/11/17 07:50; Admin Dose 1 TAB; Start 01/08/17 at 22: 30 Acetaminophen/ Hydrocodone Bitart ([place] (5/325)) 2 tab Q6H PRN PO PAIN LEVEL 7 -10; Start 01/08/17 at 22:30 Docusate Sodium (Colace) 100 mg Q12H PRN PO CONSTIPATION; Start 01/08/17 at 22: 30 Famotidine (Pepcid) 20 mg Q12 PO Last administered on 01/11/17 10:23; Admin Dose 20 MG; Start 01/08/17 at 22:30 Aspirin (Halfprin) 81 mg DAILY PO Last administered on 01/11/17 10:23; Admin Dose 81 MG; Start 01/10/17 at 09:00 Hydralazine HCl (Apresoline) 10 mg Q8H PRN IV ELEVATED SYSTOLIC BP; Start 01/09 at 14:00 Atorvastatin Calcium (Lipitor) 40 mg HS PO Last administered on 01/10/17 20:33 ; Admin Dose 40 MG; Start 01/09/17 at 21:00 Lisinopril (Zestril) 10 mg BID PO Last administered on 01/11/17 10:23; Admin Dose 10 MG; Start 01/09/17 at 21:00 Miscellaneous Information 1 ea NOTE XX ; Start 01/09/17 at 14:30 LACIE PALMER Jan 11, 2017 13:38
== END 2017-01-11 16:58 | DRG 65 ==
LOC: E/R 17:21 → TEL 22:18
PROVIDERS: ADMIT Internal Medicine; ATTEND Internal Medicine
DX: I63.9 Cerebral infarction, unspecified (principal); G81.94 Hemiplegia, unspecified affecting left nondominant side; I10 Essential (primary) hypertension; E78.5 Hyperlipidemia, unspecified; R29.810 Facial weakness; R47.1 Dysarthria and anarthria; R73.03 Prediabetes
CPT/HCPCS: 36415; 70450; 70544; 70551; 71010; 80048; 80053; 80061; 82962; 83036; 83735; 84100; 84439; 84443; 84484; 85025; 85610; 85730; 92610; 93005; 93306; 93880; 97110; 97116; 97162; 97530; G0378; J1815; J7030

== ENCOUNTER 2019-03-24 14:54 | Emergency (ER) | payer OTHER ==
[~2019-03-24] VITALS: Wt 77.3 kg
[~2019-03-24 14:54] MED LIST: CHOL100062 PO; GLUC-105 PO
[2019-03-24 15:58] VITALS: BP 158/86; PULSE 70; RESP 20
[2019-03-24] MEDS ORDERED: KETOROLAC 30 MG INJ IM STA (16:53)
[2019-03-24] MEDS ORDERED: traMADol 50 MG TAB PO ONE (17:00)
[2019-03-24] MEDS ORDERED: IBUP-1542 PO (17:59)
[2019-03-24] MEDS ORDERED: ACET325T33 PO (17:59)
--- NOTE | 2019-03-24 18:29 | ERD ---
ER Documentation Chief Complaint Chief Complaint R. SHOULDER PAIN P TRIP AND FALL SAT, UNABLE TO LIFT ARM HPI History of Present Illness: 63-year-old female coming in today with complaint of right shoulder pain secondary to mechanical fall. Patient reports decreased mobility and inability to raise arm due to pain. Denies any other associated symptoms. At home pharmacological/nonpharmacological treatment for symptoms: Denies Denies social concerns; Denies recent foreign travel ROS All systems reviewed and are negative except as per history of present illness. Medications Home Meds Active Scripts Acetaminophen* (Tylenol*) 325 Mg Tablet, 2 TAB PO Q6 PRN for PAIN AND OR ELEVATED TEMP, #30 TAB Prov:CIARA GREENE V [employer]GING MACHINE CATCHER 03/24/19 Ibuprofen* (Motrin*) 600 Mg Tab, 600 MG PO Q8 PRN for PAIN AND/OR INFLAMMATION, #30 TAB Prov:CIARA GREENE V EDGING MACHINE CATCHER 03/24/19 Reported Medications Glucosa Infante 2KCL/Chondroitin Infante (GLUCOSAMINE CHONDROITIN CAPLET) 1 Each Tablet, 1 EACH PO DAILY, TAB 01/08/17 Cholecalciferol* (Vitamin D3*) 1,000 Unit Tablet, 1000 UNIT PO DAILY, TAB 01/08/17 Allergies Allergies: Coded Allergies: No Known Allergy (Unverified , 01/08/17) PMhx/Soc History of Surgery: No Anesthesia Reaction: No Hx Neurological Disorder: No Hx Respiratory Disorders: No Hx Cardiac Disorders: Yes (HTN) Hx Psychiatric Problems: No Hx Alcohol Use: No Hx Substance Use: No Hx Tobacco Use: No FmHx Family History: No coronary disease Physical Exam Vitals Vital Signs Date Temp Pulse Resp B/P (MAP) Pulse Ox O2 O2 Flow FiO2 Time Delivery Rate 03/24/19 98.2 70 20 158/86 97 15:58 (110) Physical Exam Const: No acute distress, afebrile Head: Atraumatic Eyes: Normal Conjunctiva ENT: Normal External Ears, Nose and Mouth. Neck: Full range of motion. No meningismus. Resp: Clear to auscultation bilaterally Cardio: Regular rate and rhythm, no murmurs Abd: Soft, non tender, non distended. No guarding, no masses, no rigidity Skin: No petechiae or rashes Back: No midline or flank tenderness Ext: No cyanosis, or edema; RUE: No dislocation, no deformity noted, decreased range of motion with raising arm secondary to pain Neur: Awake and alert x3, speaking in clear sentences, no focal deficits or facial asymmetry Psych: Normal Mood and Affect Results 24 hrs Current Medications Medications Dose Sig/Matt Start Time Status Last (Trade) Ordered Route PRN Stop Time Admin Dose Reason Admin Ketorolac 30 mg ONCE STAT 03/24/19 DC 03/24/19 Tromethamine IM 16:53 03/24/19 17:05 (Toradol) 16:56 Tramadol 50 mg ONCE ONCE 03/24/19 DC 03/24/19 HCl PO 17:00 03/24/19 17:05 (Ultram) 17:01 Procedures/MDM Musculoskeletal over the weekend ED COURSE: ED course includes a thorough examination and history. The patient was stable throughout ED course. I kept the patient and/or family informed of laboratory and diagnostic imaging results throughout the ED course. LABS: None MEDICATIONS GIVEN IN ER: Ketorolac and tramadol patient tolerated medication well with no adverse reactions. Patient reported improvement in pain. DIAGNOSTIC IMAGING: Right shoulder Read by radiologist. IMPRESSION: 1. No acute osseous abnormality. 2. Unchanged long metallic densities superimposing lateral right hemithorax. RPTAT:HAJM Physician Vincent Date Time Electronically viewed and signed by Physician Vincent on 03/24/2019 17:36 none PROCEDURES: None. MEDICAL DECISION MAKING: Low suspicion for life-threatening medical emergency. Low suspicion for orthopedic emergency that requires hospitalization or immediate surgical intervention; low suspicion for fractures or dislocations. Otherwise healthy patient presenting with constellation of symptoms likely representing shoulder contusion as characterized by history, physical exam findings, radiology findings. Patient reassessment @ 1757: Orders placed for sling (shoulder immobilizer). Results discussed. Patient hemodynamically stable. No respiratory distress, otherwise relatively well appearing and nontoxic. Disposition given. Patient educated on diagnoses, prescriptions, follow-up care, return precautions. Strict return precautions given for worsening condition; questions answered dis charge. Patient verbalizes understanding of discharge instructions. Range of motion exercises were discussed. PRESCRIPTIONS FOR HOME: Acetaminophen, ibuprofen DISPOSITION: DISCHARGE At this time, patient is stable for discharge and outpatient management. I have instructed the patient to follow-up with his/her primary care physician in 1-2 days. I have discussed with the patient the possibility of needing to see a specialist for further workup and imaging studies if symptoms persist. I have instructed the patient to promptly return to the ER for any new or worsening symptoms including increased pain, fever, nausea, vomiting, weakness or LOC. The patient and/or family expressed understanding of and agreement with this plan. All questions were answered. Home care instructions were provided. DISCLAIMER: Inadvertent spelling and grammatical errors are likely due to EHR/dictation software use and do not reflect on the overall quality of patient care. Also, please note that the electronic time recorded on this note does not necessarily reflect the actual time of the patient encounter. Departure Diagnosis: Primary Impression: Shoulder injury Condition: Stable Patient Instructions: Shoulder Contusion Ref[facility]: [facility] Usted se chun hecho un examen mdico de control que le indica que no est en marianna condicin que requiera tratamiento urgente en el Departamento de Emergencia. Un estudio ms profundo y el tratamiento de infante condicin pueden esperar sin ningn riesgo hasta que usted sea atendida/o en el consultorio de infante mdico o marianna clnica. Es responsabilidad suya arreglar marianna regan para el seguimiento del davida. MANEJO DE CONDICIONES NO URGENTES EN EL FUTURO 1) Si usted tiene un mdico de atencin primaria: Usted debera llamar a infante mdico de atencin primaria antes de venir al departamento de emergencia. Despus de las horas de consultorio, infante doctor o infante asociado/a est disponible por telfono. El mdico o enfermero de samaria en el servicio telefnico puede asesorarle por zaki medio para atender el problema, o davida contrario se puede programar marianna regan. 2) Si usted no tiene un mdico de atencin primaria: Llame al mdico o clnica de referencia que aparece abajo elana las horas de consultorio para hacer marianna regan para que le vean. CLINICAS: [facility] [id number] [facility] [phone] [facility] [phone] [place] [id number] [phone] [place] [phone] [address] [facility]. [phone] [address] [facility]. [facility] () ted se chun hecho un examen mdico de control que le indica que no est en marianna condicin que requiera tratamiento urgente en el Departamento de Emergencia. Un estudio ms profundo y el tratamiento de infante condicin pueden esperar sin ningn riesgo hasta que usted sea atendida/o en el consultorio de infante mdico o marianna clnica. Es responsabilidad suya arreglar marianna regan para el seguimiento del davida. MANEJO DE CONDICIONES NO URGENTES EN EL FUTURO 1) Si usted tiene un mdico de atencin primaria: ted debera llamar a infante mdico de atencin primaria antes de venir al departamento de emergencia. Despus de las horas de consultorio, infante doctor o infante asociado/a est disponible por telfono. El mdico o enfermero de samaria en el servicio telefnico puede asesorarle por zaki medio para atender el problema, o davida contrario se puede programar marianna regan. 2) Si usted no tiene un mdico de atencin primaria: Llame al mdico o condado institucions de referencia que aparece abajo elana las horas de consultorio para hacer marianna regan para que le vean. SI USTED NO PUEDE PAGAR PARA CATRACHITO UN MEDICO puede ir a: [facility] [id number] [place] [address] [facility] [address] [place] [address] [facility] [address] [place] [address] [facility] [address] [place], [place] [id number] Additional Instructions: Google Translate utilizado para la traduccin de las siguientes lneas, por favor, disculpe los errores. Muchas doc por permitirnos participar en infante cuidado. Infante marty y seguridad es nuestra principal prioridad en [facility]. Es importante leer todas las instrucciones de deny y la educacin que se proporcionan en infante paquete de deny. Llame a infante mdico de atencin primaria MAANA para marianna regan elana los prximos 2 a 4 rogel y lleve toda la informacin y los medicamentos recetados. --Acetaminofeno mari medicamento para el dolor y / o fiebre. Attapulgus neisha medic amento segn sea necesario para el dolor leve a moderado. Neisha medicamento no causar somnolencia. -El ibuprofeno es un medicamento que ayuda con el dolor / inflamacin. En la dosis de 600 a 800 mg, esto ayudar con la inflamacin / hinchazn. Attapulgus neisha me dicamento segn las indicaciones. Llene las recetas y siga exactamente las instrucciones de la etiqueta. Si los sntomas empeoran y infante proveedor no est disponible, regrese inmediatamente al Departamento de Emergencias. ----- Google Translate used for translation of following lines, please excuse errors. Thank you very much for allowing us to participate in your care. Your health and safety is our top priority at [facility]. It is important to read all discharge instructions and education provided in your discharge packet. Call your primary care doctor TOMORROW for an appointment during the next 2-4 days and bring all the information and medications prescribed. Have prescriptions filled and follow precisely the directions on the label. --Acetaminophen as a medication for pain and/or fever. Take this medication as needed for mild to moderate pain. This medication will not cause drowsiness. -Ibuprofen is a medication that will help with pain/inflammation. At the dosage of 600 to 800 mg, this will help with inflammation/swelling. Take this medication as prescribed. If the symptoms get worse and your provider is unavailable, return to the Emergency Department immediately. CIARA GREENE NP Mar 24, 2019 18:29
== END 2019-03-24 18:13 | disposition home or self-care (01) ==
LOC: FTE 14:54
DX: S49.91XA Unspecified injury of right shoulder and upper arm, initial encounter (principal); I10 Essential (primary) hypertension; W01.0XXA Fall on same level from slipping, tripping and stumbling without subsequent striking against object, initial encounter; Y92.9 Unspecified place or not applicable
CPT/HCPCS: 73030; 96372; J1885; Z7502; Z7610